=== PATIENT | female | born 1955 | race Caucasian/White ===

== ENCOUNTER → 2021-05-09 13:31 | Outpatient (CLI) | payer MEDICARE, BC, SELFPAY ==
[2021-05-09 15:15] LABS: Add Manual Diff / Slide Review NO; Basophils Absolute Auto 100 /uL (0-100); Basophils Percent Auto 0.4 % (0-2); Eosinophils Absolute Auto 100 /uL (0-450); Eosinophils Percent Auto 0.5 % (2-4); Hematocrit 41.6 % (36-46); Hemoglobin 13.9 g/dL (12.0-16.0); Lymphocytes Absolute Auto 1700 /uL (1100-4500); Lymphocytes Percent Auto 13.5 % (25-40); Mean Corpuscular HGB Conc 33.3 % (30-36); Mean Corpuscular Hemoglobin 32.4 PG (26-34); Mean Corpuscular Volume 97.2 fL (80-100); Monocytes Absolute Auto 1400 /uL (0-900); Monocytes Percent Auto 11.2 % (3-14); Neutrophils Absolute Auto 9400 /uL (1500-7000); Neutrophils Percent Auto 74.4 % (50-75); Platelet Count 407 X10^3/uL (150-400); Red Blood Cell Count 4.28 X10^6/uL (4.0-5.2); Red Cell Distribution Width 14.7 % (11.6-14.8); White Blood Cell Count 12.6 X10^3/uL (4.5-11.0)
[2021-05-09 15:36] LABS: Alanine Aminotransferase 22 IU/L (<35); Albumin 4.5 g/dL (3.5-5.0); Albumin Globulin Ratio 1.6 (1.0-2.8); Alkaline Phosphatase 69 U/L (38-126); Aspartate Aminotransferase 32 IU/L (14-36); BUN Creatinine Ratio 30.3 (6-22); Bilirubin Total 0.5 mg/dL (0.2-1.3); Blood Urea Nitrogen 20 mg/dL (7-17); Calcium 9.7 mg/dL (8.4-10.2); Carbon Dioxide 30 mmol/L (22-32); Chloride 100 mmol/L (98-107); Cholesterol 237 mg/dL (140-199); Estimated Glomerular Filt Rate > 60.0 mL/min (>60); Globulin 2.9 g/dL (1.7-4.1); Glucose 93 mg/dL (80-110); HDL Cholesterol 99 mg/dL (40-60); HEMOLYSIS < 15 (0-50); LDL Cholesterol Calculated 124 mg/dL (<100); Potassium 4.5 mmol/L (3.4-5.1); Sodium 137 mmol/L (137-145); Total Protein 7.4 g/dL (6.3-8.2); Triglycerides 71 mg/dL (35-150)
== END ==
PROVIDERS: PCP Physician Assistant; Referring Provider Physician Assistant; Visit Provider Physician Assistant
DX: N39.0 Urinary tract infection, site not specified (principal); E78.5 Hyperlipidemia, unspecified
CPT/HCPCS: 36415; 80053; 80061; 85025

== ENCOUNTER → 2021-05-29 10:32 | Outpatient (CLI) | payer MEDICARE, BC, SELFPAY ==
--- NOTE | 2021-05-29 10:44 | DI.CT.S_ITS ---
PROCEDURE: CT CHEST WO CON INDICATIONS: Nicotine dependence, cigarettes, uncomplicated TECHNIQUE: Noncontrast 2.0-2.5 mm thick sections acquired from the pulmonary apices to the posterior costophrenic angles. 7 mm thick axial MIP, and 5 mm coronal and sagittal reformats were then acquired. A low radiation dose technique was utilized. COMPARISON: None. FINDINGS: Image quality: Diagnostic, given the low radiation dose technique. Lungs and pleura: There are couple of small left lung nodules. Nodule 1: 2 mm; left upper lobe; series 3, image 131; ground-glass. Nodule 2: 2 mm; left lower lobe; series 3, image 255; solid. Mild emphysema. Right middle lobe and lingular scars. Mediastinum: Heart size is normal. No pericardial effusion. No mediastinal adenopathy by size criteria. Thoracic aorta and central pulmonary arteries are normal in size. Esophagus is normal in caliber. No hiatal hernia. Bones and chest wall: No suspicious bony lesions. No vertebral body compression fractures. No axillary or supraclavicular adenopathy by size criteria. Thyroid gland is normal. Abdomen: Visualized upper abdomen solid organs and bowel loops appear normal in the absence of contrast. IMPRESSION: 1. Small left lung nodules as described. LUNG-RADS 2; a new screening CT in 12 months Dictated by: Phil Michael M.D. on 05/29/2021 at 11:25 Approved by: Phil Michael M.D. on 05/29/2021 at 11:29
== END ==
PROVIDERS: PCP Physician Assistant; Referring Provider Physician Assistant; Visit Provider Physician Assistant
DX: J43.9 Emphysema, unspecified (principal); R91.8 Other nonspecific abnormal finding of lung field; J98.4 Other disorders of lung; F17.210 Nicotine dependence, cigarettes, uncomplicated
CPT/HCPCS: 71250

== ENCOUNTER → 2021-06-06 11:22 | Outpatient (CLI) | payer MEDICARE, BC, SELFPAY ==
[2021-06-06 13:13] LABS: Add Manual Diff / Slide Review NO; Basophils Absolute Auto 0 /uL (0-100); Basophils Percent Auto 0.7 % (0-2); Eosinophils Absolute Auto 200 /uL (0-450); Eosinophils Percent Auto 3.6 % (2-4); Hematocrit 37.5 % (36-46); Hemoglobin 12.7 g/dL (12.0-16.0); Lymphocytes Absolute Auto 2000 /uL (1100-4500); Lymphocytes Percent Auto 35.1 % (25-40); Mean Corpuscular HGB Conc 33.7 % (30-36); Monocytes Absolute Auto 600 /uL (0-900); Monocytes Percent Auto 10.4 % (3-14); Neutrophils Absolute Auto 2900 /uL (1500-7000); Neutrophils Percent Auto 50.2 % (50-75); Platelet Count 357 X10^3/uL (150-400); Red Blood Cell Count 3.95 X10^6/uL (4.0-5.2); Red Cell Distribution Width 14.4 % (11.6-14.8); White Blood Cell Count 5.8 X10^3/uL (4.5-11.0)
== END ==
PROVIDERS: PCP Physician Assistant; Referring Provider Physician Assistant; Visit Provider Physician Assistant
DX: D72.829 Elevated white blood cell count, unspecified (principal)
CPT/HCPCS: 36415; 85025

== ENCOUNTER → 2022-04-16 10:05 | Outpatient (CLI) | payer MEDICARE, BC, SELFPAY ==
--- NOTE | 2022-04-16 10:09 | DI.CT.S_ITS ---
PROCEDURE: CT CHEST WO CON INDICATIONS: Irene Little TECHNIQUE: Noncontrast 2.0-2.5 mm thick sections acquired from the pulmonary apices to the posterior costophrenic angles. 7 mm thick axial MIP and 5 mm coronal and sagittal reformats were then acquired. A low radiation dose technique was utilized. COMPARISON: [facility], CT, CT CHEST WO CON, 05/29/2021, 10:39. FINDINGS: Image quality: Diagnostic, given the low radiation dose technique. Lungs and pleura: Unchanged 2 mm pulmonary nodule, extreme left lung base, image 263/3. 3 mm calcified granuloma, right upper lobe, image 135/3. This is unchanged from the previous study, prior image 138/3. There also 2 new small pulmonary nodules in the right lung on image 133/3, measuring 2 mm and 3 mm respectively. right upper lobe, image 133/3. Mediastinum: Heart size is normal. No pericardial effusion. No mediastinal adenopathy by size criteria. Thoracic aorta and central pulmonary arteries are normal in size. Esophagus is normal in caliber. No hiatal hernia. Bones and chest wall: No suspicious bony lesions. No vertebral body compression fractures. No axillary or supraclavicular adenopathy by size criteria. Thyroid gland is unremarkable . Abdomen: Visualized upper abdomen solid organs and bowel loops appear normal in the absence of contrast. IMPRESSION: 1. 2 small pulmonary nodules, 1 of which is a calcified granuloma, or stable compared to the previous study. 2. There are 2 additional 3 mm or less pulmonary nodules which have developed in the right lung since the previous study. Comment: Recommend follow-up CT in 6-12 months to re-evaluate the 2 tiny pulmonary nodules which have developed since the previous study. Fleischner Society criteria for SOLID lung nodule followup. Nodule size (mm)Low-risk patientHigh-risk patient<6 (single or multiple)No routine followup.Optional CT at 12 months. 6-8 (single or multiple)CT at 6-12 months, then optional CT at 18-24 mo.CT at 6-12 months, then CT at 18-24 months. >8 (single)CT at 3 months, PET-CT, or biopsy. Same as for low-risk pts. >8 (multiple)CT at 3-6 months, then optional CT at 18-24 mo.CT at 3-6 months, then CT at 18-24 months. Fleischner Society criteria for SUB-SOLID lung nodule followup. Solitary pure ground-glass nodules<6 mm (ground glass or part solid)No followup needed. 6 mm or larger (ground glass)CT at 6-12 months to confirm persistence, then CT every 2 years until 5 years.6 mm or larger (part solid)CT at 3-6 months to confirm persistence, then annual CT until 5 years if unchanged and solid component remains <6 mm. Multiple sub-solid nodules<6 mmCT at 3-6 months, then CT consider at 2 & 4 years for high risk patients. [address] at 3-6 months. Subsequent management based on most suspicious lesions. Recommendations do not apply to lung cancer screening, patients with immunosuppression, or patients with known primary cancer. Dictated by: Cong Epstein M.D. on 04/16/2022 at 12:35 Approved by: Cong Epstein M.D. on 04/16/2022 at 12:42
[2022-04-16 12:11] LABS: Add Manual Diff / Slide Review NO; Basophils Absolute Auto 100 /uL (0-100); Basophils Percent Auto 0.8 % (0-2); Eosinophils Absolute Auto 100 /uL (0-450); Hematocrit 43.5 % (36-46); Hemoglobin 14.9 g/dL (12.0-16.0); Lymphocytes Absolute Auto 2400 /uL (1100-4500); Lymphocytes Percent Auto 34.2 % (25-40); Mean Corpuscular HGB Conc 34.2 % (30-36); Mean Corpuscular Volume 96.3 fL (80-100); Monocytes Absolute Auto 700 /uL (0-900); Monocytes Percent Auto 10.6 % (3-14); Neutrophils Absolute Auto 3600 /uL (1500-7000); Neutrophils Percent Auto 52.4 % (50-75); Platelet Count 396 X10^3/uL (150-400); Red Blood Cell Count 4.52 X10^6/uL (4.0-5.2); Red Cell Distribution Width 15.7 % (11.6-14.8); White Blood Cell Count 6.9 X10^3/uL (4.5-11.0)
[2022-04-16 12:50] LABS: Alanine Aminotransferase 35 IU/L (<35); Albumin 4.5 g/dL (3.5-5.0); Albumin Globulin Ratio 1.5 (1.0-2.8); Alkaline Phosphatase 80 U/L (38-126); Aspartate Aminotransferase 42 IU/L (14-36); BUN Creatinine Ratio 33.3 (6-22); Bilirubin Total 0.6 mg/dL (0.2-1.3); Blood Urea Nitrogen 24 mg/dL (7-17); Calcium 9.6 mg/dL (8.4-10.2); Carbon Dioxide 29 mmol/L (22-32); Chloride 102 mmol/L (98-107); Cholesterol 246 mg/dL (140-199); Estimated Glomerular Filt Rate > 60 mL/min (>60); Globulin 3.1 g/dL (1.7-4.1); Glucose 96 mg/dL (80-110); HEMOLYSIS < 15 (0-50); Potassium 4.7 mmol/L (3.4-5.1); Sodium 139 mmol/L (137-145); Total Protein 7.6 g/dL (6.3-8.2); Triglycerides 56 mg/dL (35-150)
[2022-04-16 13:10] LABS: HDL Cholesterol 125 mg/dL (40-60); LDL Cholesterol Calculated 110 mg/dL (<100)
[2022-04-16 13:52] LABS: Folate 13.6 ng/mL (2.76-20.0); Vitamin B12 842 pg/mL (239-931)
[2022-04-16 15:59] LABS: Vitamin D 25 Hydroxy (D3) 37.7 ng/mL (30.0-100.0)
== END ==
PROVIDERS: PCP Family Medicine; Referring Provider Family Medicine; Visit Provider Family Medicine
DX: R91.1 Solitary pulmonary nodule (principal); I10 Essential (primary) hypertension; E78.5 Hyperlipidemia, unspecified; D72.829 Elevated white blood cell count, unspecified; Z78.0 Asymptomatic menopausal state; E56.9 Vitamin deficiency, unspecified; M85.852 Other specified disorders of bone density and structure, left thigh; M85.851 Other specified disorders of bone density and structure, right thigh; M81.8 Other osteoporosis without current pathological fracture; E55.9 Vitamin D deficiency, unspecified
CPT/HCPCS: 36415; 71250; 77080; 80053; 80061; 82306; 82607; 82746; 85025

== ENCOUNTER → 2022-04-29 08:40 | Outpatient (CLI) | payer MEDICARE, BC, SELFPAY ==
--- NOTE | 2022-04-29 08:41 | DI.MG.S_ITS ---
BILATERAL DIGITAL DIAGNOSTIC MAMMOGRAM 3D/2D: 04/29/2022 CLINICAL: Breast lump. Comparison is made to exams dated: 07/18/2020 mammogram and 07/06/2019 mammogram - outside location. There are scattered areas of fibroglandular density in both breasts (category b / 25%-50% glandular tissue). No significant masses, calcifications, or other findings are seen in either breast. IMPRESSION: INCOMPLETE: NEEDS ADDITIONAL IMAGING EVALUATION No mammographic evidence of malignancy. A targeted ultrasound is recommended and will immediately follow. Based on the Tyrer Cuzick model (a risk assessment model) the patient's lifetime risk is 6.5% and her 10 year risk is 3.2%. According to the ACR, ACS, and NCCN guidelines, an annual breast MRI exam along with mammogram is recommended if the patient's lifetime risk is 20% or greater. This exam was interpreted at Station ID: [id number]. NOTE: For mammograms, a report in lay terms will be sent to the patient. Approximately 15% of breast malignancies will not be visualized mammographically. In the management of a palpable breast mass, a negative mammogram must not discourage biopsy of a clinically suspicious lesion. Electronically Signed By: Bautista Lunsford M.D. slc/:04/29/2022 09:21:40 ACR BI-RADS Category 0: Incomplete 3340F
--- NOTE | 2022-04-29 08:42 | DI.US.S_ITS ---
LIMITED ULTRASOUND OF RIGHT BREAST AND AXILLA: 04/29/2022 CLINICAL: Palpable right breast lump. Comparison is made to exams dated: 04/29/2022 mammogram - [facility], 07/18/2020 mammogram, and 07/06/2019 mammogram - outside location. Color flow and real-time ultrasound of the right breast 11-12 o'clock, and axilla regions were performed. [place] scale images of the real-time examination were reviewed. There is a 1.2 cm x 0.8 cm x 0.5 cm irregular mass with an indistinct margin in the right breast at 11 o'clock posterior depth 8 cm from the nipple. This irregular mass is hypoechoic and heterogeneously echogenic. This correlates as palpated. Color flow imaging demonstrates that there is no vascularity present. No significant abnormalities were seen sonographically in the right axilla. IMPRESSION: PROBABLY BENIGN The 1.2 cm irregular mass in the right breast resembles fat necrosis and is probably benign. A follow-up ultrasound in 3 months is recommended. Patient reports history of trauma in this region about 1 month ago. Reports that the palpable abnormality is decreasing in size. Exam findings were conveyed to the patient. Patient is advised to monitor for significant change. Clinical follow-up as needed. This exam was interpreted at Station ID: [id number]. Electronically Signed By: Bautista Lunsford M.D. slc/:04/29/2022 10:05:12 letter sent: Followup Recommended Ultrasound BI-RADS: 3 Probably benign
== END ==
PROVIDERS: PCP Family Medicine; Referring Provider Family Medicine; Visit Provider Family Medicine
DX: N63.11 Unspecified lump in the right breast, upper outer quadrant (principal); R92.2 Inconclusive mammogram
CPT/HCPCS: 76642; 77066; G0279

== ENCOUNTER 2023-03-31 07:21 | Emergency (ER) | payer MEDICARE, BC, SELFPAY ==
[2023-03-31 07:29] VITALS: BP 147/73; PULSE 80; RESP 12; TEMP 36.6; O2SAT 99; BMI 20.7
--- NOTE | 2023-03-31 07:42 | ED_ITS ---
HPI - Extremity Problem General Chief complaint: Extremity Problem,Nontraumatic Stated complaint: left side pain and neck and back Time Seen by Provider: 03/31/23 07:29 Source: patient Mode of arrival: Family Vehicle History of Present Illness HPI Narrative: Patient is a 67-year-old female who for the past several weeks has had worsening left-sided neck pain that is radiating down her left arm. There has been no specific trauma. Approximately 10 years ago she did have a proximal humerus fracture and she states that ever since then her left shoulder has not been the same. She states she does do quite a bit of work out in her garden. She has been trying Tylenol and ibuprofen at home without much improvement. She is also tried ice. Related Data Home Medications Medication Instructions Recorded Confirmed duloxetine [Cymbalta] PO 12/26/22 12/26/22 gabapentin PO 12/26/22 12/26/22 Previous Rx's Medication Instructions Recorded cyclobenzaprine 10 mg tablet 10 mg PO TID PRN muscle spasm #21 03/31/23 tabs hydrocodone 5 mg-acetaminophen 325 1 tab PO Q4-6H PRN pain #10 tabs 03/31/23 mg tablet Allergies Allergy/AdvReac Type Severity Reaction Status Date / Time No Known Drug Allergies Allergy Verified 03/31/23 07:33 Review of Systems Constitutional Constitutional: Reports system reviewed and no additional complaints, except as documented Musculoskeletal Musculoskeletal: Reports system reviewed and no additional complaints, except as documented Integumentary/Breasts Skin/Breast: Reports system reviewed and no additional complaints, except as documented Neurologic Neurologic: Reports system reviewed and no additional complaints, except as documented Patient History Social History Smoking Status: Current some day smoker Smoking Status: Current some day smoker tobacco type: cigarettes alcohol intake frequency: 0-2 drinks per day Substance Use Type: marijuana Exam Initial Vital Signs Initial Vital Signs: Vital Signs Temperature 97.8 F 03/31/23 07:29 Pulse Rate 80 03/31/23 07:29 Respiratory Rate 12 03/31/23 07:29 Blood Pressure 147/73 H 03/31/23 07:29 Pulse Oximetry 99 03/31/23 07:29 Oxygen Delivery Method Room Air 03/31/23 07:29 Back/Spine/Pelvis Other: Tenderness to palpation along the left cervical spine Skin General: no rashes or lesions noted Neuro Other: Sensation is intact however she reports tingling and burning down the lateral aspect of her left arm Extrem Other: No gross deformities however she does have some tenderness to palpation along the superior aspect of the left shoulder and left cervical spine. Course Orders Ordered: Discontinued Medications Ketorolac Tromethamine (Ketorolac 30 Mg/Ml Vial) 30 mg IM NOW ONE Stop: 03/31/23 07:42 Vital Signs Vital signs: Vital Signs - 8 hr 03/31/23 07:29 Temperature 97.8 F Pulse Rate 80 Respiratory Rate 12 Blood Pressure 147/73 H Pulse Oximetry 99 Oxygen Delivery Method Room Air MDM - Extremity (Nontraumatic) MDM Narrative Medical decision making narrative: Patient's presentation is consistent with cervical radiculopathy. Low suspicion for fracture. Low suspicion for septic joint. She has been doing Tylenol and ibuprofen and I encouraged her to continue to do so. We will place her on muscle relaxers and pain medication as she is in quite a bit of discomfort. She was given return precautions. Discharge Plan Departure Patient Disposition: Home Clinical Impression: Cervical radiculopathy Instructions: DI for Cervical Radiculopathy Activity Restrictions/Additional Instructions: I do recommend that you continue with the conservative measures that you have been doing to include light stretching and acetaminophen and ibuprofen. A prescription for muscle relaxers and pain medication was sent to [facility]. Contact your primary doctor for a follow-up as you may need physical therapy for continued improvement of your symptoms. Prescriptions: New hydrocodone-acetaminophen 5-325 mg tablet 1 tab PO Q4-6H PRN (Reason: pain) Qty: 10 0RF cyclobenzaprine 10 mg tablet 10 mg PO TID PRN (Reason: muscle spasm) Qty: 21 0RF No Action duloxetine [Cymbalta] PO gabapentin PO Referrals: Erica Pimentel RN [Primary Care Provider] - Stand Alone Forms: Patient Portal/API
[2023-03-31] MEDS: KETOROLAC 30 MG/ML VIAL IM (07:49)
== END 2023-03-31 08:00 | disposition home or self-care (01) ==
PROVIDERS: Emergency Provider Emergency Medicine; PCP Nurse Practitioner Family
DX: M54.12 Radiculopathy, cervical region (principal)
CPT/HCPCS: 96372; 99283; J1885

== ENCOUNTER → 2023-04-09 13:01 | Outpatient (CLI) | payer MEDICARE, BC, SELFPAY ==
--- NOTE | 2023-04-09 13:07 | DI.RAD.S_ITS ---
PROCEDURE: XR CERVICAL SPINE 2V OR 3V INDICATIONS: BACK/SHOULDER PAIN TECHNIQUE: 3 view(s) of the cervical spine were acquired. COMPARISON: None. FINDINGS: Bones: No fractures or dislocations to the C7 level. The lateral masses of C1 appear intact on the odontoid view. No suspicious bony lesions. Moderate C5-C6 degenerative disc disease. Mild C3-C4, C4-C5 and C6-C7 degenerative disc disease. Mild facet hypertrophy throughout the cervical spine. Mild bilateral C 5-C6 and C6-C7 uncovertebral joint hypertrophy. Soft tissues: No prevertebral soft tissue swelling. IMPRESSION: 1. Multilevel degenerative disc disease. 2. Multilevel facet and uncovertebral arthropathy. 3. No fracture. No acute osseous lesion. If symptoms and/or clinical suspicion for pathology persists, evaluation with MRI should be considered for further assessment. Dictated by: Sera Preston MD, PhD on 04/09/2023 at 14:59 Approved by: Sera Preston MD, PhD on 04/09/2023 at 15:00
--- NOTE | 2023-04-09 13:07 | DI.RAD.S_ITS ---
PROCEDURE: XR SHOULDER LT MIN 2V INDICATIONS: BACK/SHOULDER PAIN TECHNIQUE: 3 views of the shoulder were acquired. COMPARISON: None. FINDINGS: Bones: No fractures or dislocations. No suspicious bony lesions. Visualized ribs appear intact. Severe glenohumeral joint osteoarthritis. Soft tissues: No suspicious soft tissue calcifications. IMPRESSION: Severe left glenohumeral joint osteoarthritis. Dictated by: Sera Preston MD, PhD on 04/09/2023 at 14:57 Approved by: Sera Preston MD, PhD on 04/09/2023 at 14:59
--- NOTE | 2023-04-09 13:08 | DI.RAD.S_ITS ---
PROCEDURE: XR THORACIC SPINE 3V INDICATIONS: BACK/SHOULDER PAIN TECHNIQUE: 3 views of the thoracic spine were acquired. COMPARISON: None. FINDINGS: Bones: No fractures or dislocations. No suspicious bony lesions. 12 pairs of ribs are noted, and appear intact where visualized. Mild to moderate degenerative disc changes throughout the thoracic spine. Mild facet hypertrophy throughout the thoracic spine. Soft tissues: No paravertebral stripe thickening. IMPRESSION: 1. Multilevel degenerative disc disease. 2. Multilevel facet arthropathy. 3. No fracture. No acute osseous lesion. If symptoms and/or clinical suspicion for pathology persists, evaluation with MRI should be considered for further assessment. Dictated by: Sera Preston MD, PhD on 04/09/2023 at 15:00 Approved by: Sera Preston MD, PhD on 04/09/2023 at 15:01
[2023-04-09 14:44] LABS: Alanine Aminotransferase 48 IU/L (<35); Albumin 4.5 g/dL (3.5-5.0); Albumin Globulin Ratio 1.6 (1.0-2.8); Alkaline Phosphatase 58 U/L (38-126); Aspartate Aminotransferase 45 IU/L (14-36); BUN Creatinine Ratio 32.3 (6-22); Bilirubin Total 0.5 mg/dL (0.2-1.3); Blood Urea Nitrogen 20 mg/dL (7-17); Calcium 9.8 mg/dL (8.4-10.2); Carbon Dioxide 26 mmol/L (22-32); Chloride 100 mmol/L (98-107); Estimated Glomerular Filt Rate > 60 mL/min (>60); Globulin 2.8 g/dL (1.7-4.1); Glucose 103 mg/dL (80-110); HEMOLYSIS < 15 (0-50); Potassium 4.3 mmol/L (3.4-5.1); Sodium 132 mmol/L (137-145); Total Protein 7.3 g/dL (6.3-8.2)
[2023-04-09 15:11] LABS: TSH w/ Reflex to FT4 1.37 uIU/mL (0.47-4.68)
[2023-04-09 15:46] LABS: Vitamin D 25 Hydroxy (D3) 40.6 ng/mL (30.0-100.0)
[2023-04-09 16:27] LABS: Hep C Virus Ab w/Reflex Quant NEGATIVE s/c (NEGATIVE)
[2023-04-10 04:09] LABS: Cholesterol,Total 287 mg/dL (100-199); HDL Cholesterol 97 mg/dL (>39); LDL Cholesterol Cal 175 mg/dL (0-99); Triglycerides 92 mg/dL (0-149); VLDL Cholesterol Cal 15 mg/dL (5-40)
== END ==
LOC: LAB 13:02 → RAD 13:05
PROVIDERS: PCP Nurse Practitioner Family; Referring Provider Nurse Practitioner Family; Visit Provider Nurse Practitioner Family
DX: M50.31 Other cervical disc degeneration, high cervical region (principal); M25.512 Pain in left shoulder; F41.1 Generalized anxiety disorder; E78.5 Hyperlipidemia, unspecified; M19.012 Primary osteoarthritis, left shoulder; M47.812 Spondylosis without myelopathy or radiculopathy, cervical region; E55.9 Vitamin D deficiency, unspecified; Z11.59 Encounter for screening for other viral diseases
CPT/HCPCS: 36415; 72040; 72072; 73030; 80053; 80061; 82306; 84443; 86803

== ENCOUNTER → 2023-04-16 13:24 | Outpatient (CLI) | payer MEDICARE, BC, SELFPAY ==
--- NOTE | 2023-04-16 | DI.US.S_ITS ---
LIMITED ULTRASOUND OF RIGHT BREAST: 04/16/2023 CLINICAL: Patient returns today for late 3 month follow up of the right breast. Comparison is made to exams dated: 04/29/2022 ultrasound, 04/29/2022 mammogram - [facility], 07/18/2020 mammogram, 07/06/2019 mammogram, 07/15/2018 mammogram, and 07/02/2017 mammogram - outside location. Color flow and real-time ultrasound of the right breast 10-11 o'clock region were performed. In the area of prior palpable concern in the right breast 11:30 o'clock, 8 cm from the nipple, no sonographic abnormality is visualized. The previously described mass at this location is no longer visualized. IMPRESSION: NEGATIVE Previously seen possible fat necrosis and probably benign mass in the area of palpable concern at 11:30 o'clock on ultrasound 04/29/2022 is no longer visualized. Patient reports palpable abnormality has resolved. Recommend return to annual mammogram screening, which patient will be due for in April 2024. Findings and recommendations were conveyed to the patient at the time of imaging completion. This exam was interpreted at Station ID: [id number]. Electronically Signed By: Isabelle josé/:04/16/2023 14:47:36 letter sent: Normal Exam Ultrasound BI-RADS: 1 Negative
--- NOTE | 2023-04-16 | DI.MG.S_ITS ---
BILATERAL DIGITAL DIAGNOSTIC MAMMOGRAM 3D/2D SHORT-TERM FOLLOW-UP: 04/16/2023 CLINICAL: Short term follow up of the right breast, due for bilateral imaging. Comparison is made to exams dated: 04/29/2022 mammogram - [facility], 07/18/2020 mammogram, and 07/06/2019 mammogram - outside location. There are scattered areas of fibroglandular density in both breasts (category b / 25%-50% glandular tissue). No significant masses, calcifications, or other findings are seen in either breast. There has been no significant interval change. IMPRESSION: INCOMPLETE: NEEDS ADDITIONAL IMAGING EVALUATION No mammographic evidence of malignancy. Recommend targeted right breast ultrasound for probably benign finding seen on prior ultrasound 04/29/2022, which will immediately follow this exam. Based on the Tyrer Cuzick model (a risk assessment model) the patient's lifetime risk is 6.2% and her 10 year risk is 3.2%. According to the ACR, ACS, and NCCN guidelines, an annual breast MRI exam along with mammogram is recommended if the patient's lifetime risk is 20% or greater. This exam was interpreted at Station ID: [id number]. NOTE: For mammograms, a report in lay terms will be sent to the patient. Approximately 15% of breast malignancies will not be visualized mammographically. In the management of a palpable breast mass, a negative mammogram must not discourage biopsy of a clinically suspicious lesion. Electronically Signed By: Isabelle Menjivar M.D. esb/:04/16/2023 14:16:00 ACR BI-RADS Category 0: Incomplete 3340F
--- NOTE | 2023-04-16 | DI.CT.S_ITS ---
PROCEDURE: CT CHEST WO CON INDICATIONS: LUNG NODLUES TECHNIQUE: Noncontrast 2.0-2.5 mm thick sections acquired from the pulmonary apices to the posterior costophrenic angles. 7 mm thick axial MIP and 5 mm coronal and sagittal reformats were then acquired. A low radiation dose technique was utilized. COMPARISON: [facility], CT, CT CHEST WO CON, 04/16/2022, 11:07. FINDINGS: Image quality: Diagnostic, given the low radiation dose technique. Lungs and pleura: No pleural effusion or pneumothorax. Mild dependent atelectasis. No focal pulmonary consolidations. Pulmonary nodules as follows: Stable 2 mm left basilar nodule (3/256). Stable right upper lobe calcified granuloma (3/127). Right upper lobe nodule appears decreased in size compared to prior measuring approximately 1 mm (3/124). Additional right upper lobe nodule measuring approximately 1 mm mildly decreased compared to prior (3/125). Mediastinum: Heart size is normal. No pericardial effusion. No mediastinal adenopathy by size criteria. Thoracic aorta and central pulmonary arteries are normal in size. Atherosclerotic vascular calcifications. Esophagus is normal in caliber. No hiatal hernia. Bones and chest wall: No suspicious bony lesions. Decreased osseous mineralization and mild degenerative changes of the spine. No vertebral body compression fractures. No axillary or supraclavicular adenopathy by size criteria. Thyroid gland is normal . Abdomen: Visualized upper abdomen solid organs and bowel loops appear normal in the absence of contrast. IMPRESSION: Pulmonary micro nodules are stable or decreased in size compared to prior, as described above. Fleischner Society criteria for SOLID lung nodule followup. Nodule size (mm)Low-risk patientHigh-risk patient<6 (single or multiple)No routine followup.Optional CT at 12 months. 6-8 (single or multiple)CT at 6-12 months, then optional CT at 18-24 mo.CT at 6-12 months, then CT at 18-24 months. >8 (single)CT at 3 months, PET-CT, or biopsy. Same as for low-risk pts. >8 (multiple)CT at 3-6 months, then optional CT at 18-24 mo.CT at 3-6 months, then CT at 18-24 months. Fleischner Society criteria for SUB-SOLID lung nodule followup. Solitary pure ground-glass nodules<6 mm (ground glass or part solid)No followup needed. 6 mm or larger (ground glass)CT at 6-12 months to confirm persistence, then CT every 2 years until 5 years.6 mm or larger (part solid)CT at 3-6 months to confirm persistence, then annual CT until 5 years if unchanged and solid component remains <6 mm. Multiple sub-solid nodules<6 mmCT at 3-6 months, then CT consider at 2 & 4 years for high risk patients. [address] at 3-6 months. Subsequent management based on most suspicious lesions. Recommendations do not apply to lung cancer screening, patients with immunosuppression, or patients with known primary cancer. Dictated by: Brian Rivera M.D. on 04/16/2023 at 16:22 Approved by: Brian Rivera M.D. on 04/16/2023 at 16:31
== END ==
PROVIDERS: PCP Nurse Practitioner Family; Referring Provider Nurse Practitioner Family; Visit Provider Nurse Practitioner Family
DX: R92.2 Inconclusive mammogram (principal); N63.11 Unspecified lump in the right breast, upper outer quadrant; R91.8 Other nonspecific abnormal finding of lung field
CPT/HCPCS: 71250; 76642; 77066; G0279

== ENCOUNTER 2023-08-06 11:10 | Day surgery (SDC) | payer MEDICARE, BC, SELFPAY ==
--- NOTE | 2023-08-06 | PATH_ITS ---
[facility] Accession Number: [id number] No. of containers..02 Tissue . 01 Material submitted: . PART A: sigmoid colon - SIGMOID POLYPS PART B: rectum - RECTAL POLYPS . 01 Diagnosis: A. Sigmoid Colon Polyps: Hyperplastic polyps. . B. Rectal Polyps: Hyperplastic polyps. V 08/11/2023 1636 Local . 01 Electronically signed: . Maxime Cummins MD, PhD, Pathologist NPI- [id number] . 01 Gross description: . Part A: SIGMOID POLYPS: Received in formalin is multiple fragment(s) of arrieta, soft tissue measuring 2.5 x 1.0 x 0.3 cm in aggregate submitted entirely in 1 cassette(s) Part B: RECTAL POLYPS: Received in formalin is multiple fragment(s) of arrieta, soft tissue measuring 1.5 x 0.5 x 0.2 cm in aggregate submitted entirely in 1 cassette(s) /AAY 08/07/2023 0448 Local . 01 Pathologist provided ICD-10: K63.5, K62.1 . 01 CPT . 444027, 726415 Specimen Comment: A courtesy copy of this report has been sent to [phone] Performed at: 01 [facility] [address] [place] [address] [address] [facility], [place], [place] [id number] MD Abdulaziz Cespedes MD Phone: [phone]
[2023-08-06 11:20] VITALS: BP 105/65; PULSE 89; RESP 17; TEMP 36.3; O2SAT 99; BMI 21.0
[2023-08-06] MEDS: LACTATED RINGERS 1,000 ML 150 ML IV (11:35)
--- NOTE | 2023-08-06 11:42 | PM.HP.1 ---
History of Present Illness History of Present Illness Date Patient Seen: 08/06/23 Time Patient Seen: 11:42 Chief complaint: Screening Colonoscopy Narrative: Krista is a 67-year-old woman here for colonoscopy. Her last colonoscopy was approximately 2016. She has had polyps removed before. No family history of colon cancer. [facility] Social History household members: none Smoking Status: Current some day smoker alcohol intake: current Meds Home Medications and Allergies Home Medications Medication Instructions Recorded Confirmed Type gabapentin 300 mg PO BID 12/26/22 08/06/23 History sertraline 100 mg tablet 260 mg PO DAILY 08/06/23 08/06/23 History Allergies Allergy/AdvReac Type Severity Reaction Status Date / Time No Known Drug Allergies Allergy Verified 03/31/23 07:33 Exam Vital Signs (past 8 hours): - 08/06/23 11:20 Temperature 97.3 F L Pulse Rate 89 Respiratory Rate 17 Blood Pressure 105/65 Pulse Oximetry 99 Oxygen Delivery Method Room Air Oxygen Delivery Method Room Air Const General: No acute distress Resp Effort & Inspection: normal respiratory effort Assessment & Plan Assessment and plan (1) Personal history of colonic polyps: Status: Acute Plan We reviewed the risks and benefits of colonoscopy and she would like to proceed.
[2023-08-06 13:03] VITALS: BP 83/60; PULSE 60; RESP 16; TEMP 37.2; O2SAT 97
--- NOTE | 2023-08-06 13:03 | PM.OP.COLON ---
Operative Date/Time/Diagnoses Date of procedure: 08/06/23 Time of procedure: 13:03 Pre-op diagnosis: Colon cancer screening Post-op diagnosis: same Procedure & Clinicians Study performed: Colonoscopy Same procedure as scheduled: Yes Surgeon: Rafael Gay Procedure Notes Procedure in detail: Surgeon: Rafael Gay MD Anesthesia: Alicia Kumar CRNA Procedure: The patient was brought to the endoscopy suite, placed in left lateral decubitus position. The patient was connected to monitoring devices. A time-out was performed. Sedation was administered. Once the patient was adequately sedated, a digital rectal exam was performed and was normal. The scope was then inserted and advanced to the cecum where the appendiceal orifice was identified and photographed. The scope was then slowly withdrawn over greater than 6 minutes. The mucosa was thoroughly inspected. There was scattered sigmoid diverticulosis. There were multiple small polyps in the sigmoid colon we removed about 10 of the largest ones and sent them together as ?sigmoid polyps?. The largest was about 8 mm. We removed another 4 small polyps in the rectum and sent them together. The scope was retroflexed in the rectum. No other abnormalities were seen. The scope was straightened and removed. The patient was awakened and brought to recovery. Scope withdrawal time: 21 minutes Sedation time: 31 minutes EBL: 5 mL Findings: Multiple sigmoid and rectal polyps Post-procedure Disposition: PACU
[2023-08-06 13:07] VITALS: BP 95/48; PULSE 58; RESP 16; O2SAT 97
[2023-08-06 13:13] VITALS: BP 91/53; PULSE 63; RESP 14; O2SAT 98
--- NOTE | 2023-08-06 13:40 | SUR.PHASEII ---
Discharge instructions reviewed with patient prior to discharge. Home with daughter in stable condition.
== END 2023-08-06 13:42 | disposition home or self-care (01) ==
PROVIDERS: PCP Nurse Practitioner Family; Referring Provider Surgery; Visit Provider Surgery
PROC: 0DJD8ZZ Inspection of Lower Intestinal Tract, Via Natural or Artificial Opening Endoscopic (ICD-10-PCS; CPT 45378; principal; 2023-08-06 12:15)
DX: Z12.11 Encounter for screening for malignant neoplasm of colon (principal); Z86.010 Personal history of colon polyps; K63.5 Polyp of colon; K62.1 Rectal polyp
CPT/HCPCS: 45380

== ENCOUNTER → 2023-10-06 11:24 | Outpatient (CLI) | payer MEDICARE, BC, SELFPAY ==
[2023-10-06 13:16] LABS: Alanine Aminotransferase 35 IU/L (<35); Albumin 4.6 g/dL (3.5-5.0); Albumin Globulin Ratio 2.1 (1.0-2.8); Alkaline Phosphatase 67 U/L (38-126); Aspartate Aminotransferase 36 IU/L (14-36); BUN Creatinine Ratio 32.8 (6-22); Bilirubin Total 0.7 mg/dL (0.2-1.3); Blood Urea Nitrogen 20 mg/dL (7-17); Calcium 10.1 mg/dL (8.4-10.2); Carbon Dioxide 25 mmol/L (22-32); Chloride 103 mmol/L (98-107); Cholesterol 246 mg/dL (140-199); Creatine Kinase 69 U/L (30-135); Estimated Glomerular Filt Rate > 60 mL/min (>60); Globulin 2.2 g/dL (1.7-4.1); Glucose 88 mg/dL (80-110); HDL Cholesterol 108 mg/dL (40-60); HEMOLYSIS < 15 (0-50); LDL Cholesterol Calculated 125 mg/dL (<100); Potassium 4.5 mmol/L (3.4-5.1); Sodium 135 mmol/L (137-145); Total Protein 6.8 g/dL (6.3-8.2); Triglycerides 65 mg/dL (35-150)
[2023-10-06 18:28] LABS: Vitamin D 25 Hydroxy (D3) 47.3 ng/mL (30.0-100.0)
== END ==
PROVIDERS: PCP Nurse Practitioner Family; Referring Provider Nurse Practitioner Family; Visit Provider Nurse Practitioner Family
DX: E78.5 Hyperlipidemia, unspecified (principal); E55.9 Vitamin D deficiency, unspecified; E87.1 Hypo-osmolality and hyponatremia; M79.10 Myalgia, unspecified site
CPT/HCPCS: 36415; 80053; 80061; 82306; 82550

== ENCOUNTER → 2025-06-13 12:03 | Outpatient (CLI) | payer MEDICARE, BC, SELFPAY ==
--- NOTE | 2025-06-13 12:06 | DI.RAD.S_ITS ---
PROCEDURE: XR DEXA AXIAL SKELETON
--- NOTE | 2025-06-13 12:15 | DI.CT.S_ITS ---
PROCEDURE: CT LUNG LOW DOSE SCREENING
== END ==
PROVIDERS: PCP Family Medicine; Referring Provider Family Medicine; Visit Provider Family Medicine
DX: Z12.2 Encounter for screening for malignant neoplasm of respiratory organs (principal); F17.210 Nicotine dependence, cigarettes, uncomplicated; M81.0 Age-related osteoporosis without current pathological fracture
CPT/HCPCS: 71271; 77080

== ENCOUNTER → 2025-06-21 15:42 | Outpatient (CLI) | payer MEDICARE, BC, SELFPAY ==
--- NOTE | 2025-06-21 15:43 | DI.MG.S_ITS ---
MM screening mammo BI: 06/21/2025. BI-RADS: 1 CLINICAL: 69-year old female for bilateral screening mammogram. Tyrer-Cuzick lifetime risk of 2.9%. No personal or first-degree family history of breast cancer. PRIOR EXAMS 04/16/2023, 04/29/2022. MAMMOGRAPHY TECHNIQUE: 2D and 3D (tomosynthesis) digital mammographic views obtained, with additional images as needed for full coverage. Current study was also evaluated with a Computer Aided Detection (CAD) system. DENSITY B. There are scattered areas of fibroglandular density. MAMMOGRAPHY FINDINGS Bilateral: No suspicious mass, asymmetry, microcalcification, or other abnormality seen. IMPRESSION: * No evidence of malignancy. RECOMMENDATIONS Bilateral * Annual screening mammography. OVERALL ASSESSMENT CATEGORY BI-RADS-1: Negative. The [employer] recommends annual screening mammography beginning at age 40 for women with average risk of breast cancer. ELECTRONICALLY SIGNED: Alex Guzman M.D. on 06/22/2025 at 06:53:10 AM PT Interpreting Station ID: [id number]
== END ==
LOC: MAMMO 15:43
PROVIDERS: PCP Family Medicine; Referring Provider Family Medicine; Visit Provider Family Medicine
DX: Z12.31 Encounter for screening mammogram for malignant neoplasm of breast (principal)
CPT/HCPCS: 77063; 77067